=== PATIENT | female | born 1965 | race Caucasian/White ===

== ENCOUNTER 2016-12-03 10:59 | Emergency (ER) | payer MEDICARE, BC ==
[2016-12-03 11:14] VITALS: BP 148/84
--- NOTE | 2016-12-03 12:44 | EDM.PDOC ---
ED HPI GENERAL MEDICAL PROBLEM - General Chief Complaint: General Stated Complaint: RHEUMATOID ARTHRITIS Time Seen by Provider: 12/03/16 12:02 Source of Information: Reports: Patient History Limitations: Reports: No Limitations - History of Present Illness INITIAL COMMENTS - FREE TEXT/NARRATIVE: This patient has rheumatoid arthritis. She says she takes about 4 or 5 hydrocodone tablets, 5 mg, daily. Generally she takes 2 twice daily but has had to take an extra one lately. She is due to began infusions of a different medication soon. She's not able to have her hydrocodone prescription filled until Friday or 6 days from now. She is on a pain contract with Dr. Rodriguez. She' s been out of her medication for about a week and says that she is aching all over and various places. - Related Data Allergies Allergy/AdvReac Type Severity Reaction Status Date / Time azithromycin Allergy Stomach Verified 02/17/13 13:43 Upset Penicillins Allergy Rash Verified 02/17/13 13:43 Sulfa (Sulfonamide Allergy Rash Verified 02/17/13 13:43 Antibiotics) Home Meds: Home Meds ALPRAZolam [Xanax] 0.5 mg PO QID PRN 02/17/13 [History] Calcium Carbonate [Calcium] 600 mg PO BID 02/17/13 [History] Hydrocodone/Acetaminophen [[place] 10-325] 1 - 2 tab PO Q4H PRN 02/17/13 [History] Levothyroxine [Synthroid] 50 mcg PO DAILY 02/17/13 [History] Metoprolol Succinate [Toprol XL] 25 mg PO BID 02/17/13 [History] Multivitamin [Multi Vitamin Daily] 1 each PO DAILY 02/17/13 [History] Nystatin [Nystatin Crm] 30 gm TOP TID PRN 02/17/13 [History] SUMAtriptan [Imitrex] 50 mg PO DAILY PRN 02/17/13 [History] predniSONE 7 mg PO DAILY 02/17/13 [History] riTUXimab [Rituxan] 500 mg IV ASDIRECTED 10/26/14 [History] Escitalopram Oxalate [Lexapro] 1 tab PO DAILY 12/03/16 [History] buPROPion [Wellbutrin XL] 1 tab PO DAILY 12/03/16 [History] Past Medical History - Past Health History Medical/Surgical History: Denies Medical/Surgical History Cardiovascular History: Reports: Hypertension Genitourinary History: Reports: Renal Calculus Other Genitourinary History: recent uti, blood in urine Other OB/BYN History: fx pelvis, 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 Musculoskeletal History: Reports: Arthritis, RA Neurological History: Reports: Migraines Psychiatric History: Reports: Anxiety, Depression Other Psychiatric History: little down d/t loss of job Other Oncologic History: skin basal skin ca Dermatologic History: Reports: Other (See Below) Other Dermatologic History: 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 ED EXAM, GENERAL - Physical Exam Exam: See Below Exam Limited By: No Limitations General Appearance: Alert, WD/WN, Mild Distress Eye Exam: Bilateral Eye: Normal Inspection Respiratory/Chest: Lungs Clear Cardiovascular: Regular Rate, Rhythm Neurological: Alert, Oriented, Normal Cognition Skin Exam: Warm, Dry Course - Vital Signs Last Recorded V/S: Last Vital Signs Temp 36.0 C 12/03/16 12:07 Pulse 71 12/03/16 12:07 Resp 14 12/03/16 12:07 BP 148/84 H 12/03/16 12:07 Pulse Ox 96 12/03/16 12:07 Departure - Departure Time of Disposition: 12:42 Disposition: Home, Self-Care 01 Condition: Fair Clinical Impression: Rheumatoid arthritis flare, Rheumatoid arthritis - Discharge Information Forms: ED Department Discharge Additional Instructions: Prescription: Hydrocodone/apap 5/325 #20 tablets take one or 2 tablets twice daily. Try to make this medication last until you're able to get your regular prescription refilled on Friday. If you have any problems before then contact Dr. Rodriguez
== END 2016-12-03 12:48 | disposition home or self-care (01) ==
LOC: JP.ED 10:59
DX: M06.9 Rheumatoid arthritis, unspecified (principal); I10 Essential (primary) hypertension; G43.909 Migraine, unspecified, not intractable, without status migrainosus; F32.9 Major depressive disorder, single episode, unspecified; F41.9 Anxiety disorder, unspecified; Z96.659 Presence of unspecified artificial knee joint; Z96.649 Presence of unspecified artificial hip joint; Z98.890 Other specified postprocedural states; Z79.899 Other long term (current) drug therapy; Z88.2 Allergy status to sulfonamides; Z88.0 Allergy status to penicillin; Z88.1 Allergy status to other antibiotic agents
CPT/HCPCS: 99282; 99283

== ENCOUNTER 2019-02-21 15:47 | Emergency (ER) | payer MEDICARE, BC ==
[2019-02-21 16:16] VITALS: BP 185/106; PULSE 71
--- NOTE | 2019-02-21 16:35 | EDM.PDOC ---
ED HPI GENERAL MEDICAL PROBLEM - General Chief Complaint: ENT Problem Stated Complaint: SINUS PRESSURE/ACHY Time Seen by Provider: 02/21/19 16:34 Source of Information: Reports: Patient History Limitations: Reports: No Limitations - History of Present Illness INITIAL COMMENTS - FREE TEXT/NARRATIVE: pt arrived with sinus pressure. She does not have a fever. Onset: Other ( started suddenly today. ) Duration: Hour(s): Location: Reports: Face, Other (pt has alot of pressure over the sinues ) Associated Symptoms: Reports: Headaches, Other (nausea. ) Face/Facial Pain Score (Numeric/FACES): 8 - Related Data Allergies Allergy/AdvReac Type Severity Reaction Status Date / Time azithromycin Allergy Stomach Verified 02/21/19 16:25 Upset Penicillins Allergy Rash Verified 02/21/19 16:25 Sulfa (Sulfonamide Allergy Rash Verified 02/21/19 16:25 Antibiotics) Home Meds: Home Meds ALPRAZolam [Xanax] 0.5 mg PO QID PRN 02/17/13 [History] Calcium Carbonate [Calcium] 600 mg PO BID 02/17/13 [History] Hydrocodone/Acetaminophen [[place] 10-325] 1 - 2 tab PO Q4H PRN 02/17/13 [History] Levothyroxine [Synthroid] 50 mcg PO DAILY 02/17/13 [History] Metoprolol Succinate [Toprol XL] 25 mg PO BID 02/17/13 [History] Nystatin [Nystatin Crm] 30 gm TOP TID PRN 02/17/13 [History] SUMAtriptan [Imitrex] 50 mg PO DAILY PRN 02/17/13 [History] predniSONE 6 mg PO DAILY 02/17/13 [History] Past Medical History - Past Health History Medical/Surgical History: Denies Medical/Surgical History Cardiovascular History: Reports: Hypertension Genitourinary History: Reports: Renal Calculus Other Genitourinary History: recent uti, blood in urine 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, 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 Musculoskeletal History: Reports: Arthritis, RA Neurological History: Reports: Migraines Psychiatric History: Reports: Anxiety, Depression Other Psychiatric History: little down d/t loss of job Other Oncologic History: skin basal skin ca Dermatologic History: Reports: Other (See Below) Other Dermatologic History: thin skin from [facility] predisone use - Past Surgical History Musculoskeletal Surgical History: Reports: Hip Replacement, Knee Replacement Social & Family History - Caffeine Use Caffeine Use: Reports: Soda ED ROS ENT - Review of Systems Review Of Systems: See Below Constitutional: Reports: Other (pressure over the sinus. ) HEENT: Reports: Sinus Problem Respiratory: Reports: No Symptoms Cardiovascular: Reports: No Symptoms Endocrine: Reports: No Symptoms GI/Abdominal: Reports: No Symptoms : Reports: No Symptoms Musculoskeletal: Reports: No Symptoms Skin: Reports: No Symptoms ED EXAM, ENT - Physical Exam Exam: See Below Text/Narrative:: pt arrived with a history of pressure over her sinuses. She feels congested. She is achy all over. She has a sore on her rt llower leg that she wants us to look at. Exam Limited By: No Limitations General Appearance: Alert, Anxious, Moderate Distress Ears: Normal TMs Nose: Normal Inspection, Other (pt has tenderness over her maxillary sinus area. ) Mouth/Throat: Normal Inspection Head: Atraumatic Neck: Normal Inspection Respiratory/Chest: No Respiratory Distress Extremities: Other (pt has a scap on the rt lower leg. There is slight redness on the leg. ) Neurological: Alert, Oriented, Normal Cognition Course - Vital Signs Last Recorded V/S: Last Vital Signs Temp 36.0 C 02/21/19 16:24 Pulse 71 02/21/19 16:24 Resp 14 02/21/19 16:24 BP 185/106 H 02/21/19 16:24 Pulse Ox 97 02/21/19 16:24 - Orders/Labs/Meds Labs: Laboratory Tests 02/21/19 Range/Units 17:05 WBC 8.0 (4.5-11.0) K/uL RBC 4.05 (3.30-5.50) M/uL Hgb 12.7 (12.0-15.0) g/dL Hct 40.0 (36.0-48.0) % MCV 99 H (80-98) fL MCH 31 (27-31) pg MCHC 32 (32-36) % Plt Count 371 (150-400) K/uL Neut % (Auto) 73 H (36-66) % Lymph % (Auto) 19 L (24-44) % [place] % (Auto) 7 H (2-6) % Eos % (Auto) 1 L (2-4) % Baso % (Auto) 1 (0-1) % Meds: Medications Discontinued Medications Generic Name Dose Route Start Last Admin Trade Name Freq PRN Reason Stop Dose Admin Bacitracin 1 dose 02/21/19 16:49 02/21/19 17:25 Bacitracin Oint 1 Gm TOP 02/21/19 16:50 1 dose ONETIME ONE Administration Ondansetron HCl 4 mg 02/21/19 16:52 02/21/19 17:23 Zofran Odt PO 02/21/19 16:53 4 mg ONETIME ONE Administration - Re-Assessments/Exams Free Text/Narrative Re-Assessment/Exam: 02/21/19 17:28 cleaning view does not show definite sinusitis, her wbc is not elevated but she does have mainly segs. 02/23/19 09:19 The area on the rt leg was cleaned and the scap was removed. There was a small amount of pus under the scap. Departure - Departure Time of Disposition: 17:28 Disposition: Home, Self-Care 01 Condition: Fair Clinical Impression: Sinusitis, Leg ulcer - Discharge Information Instructions: Sinusitis, Adult, [id number] Referrals: Alvarez Rodriguez MD [Primary Care Provider] - Forms: ED Department Discharge Care Plan Goals: cool mist humidifer,push fluids, rtc if not improving, zoforan 4 mg q6h prn for nause, clean leg lesion and apply bacatracin, keflex 500mg tid for 10 days,
[2019-02-21] MEDS ORDERED: Bacitracin Oint 1 GM U/D Packet TOP ONE (16:49)
[2019-02-21] MEDS ORDERED: Ondansetron 4 MG Tab.DIS PO ONE (16:52)
--- NOTE | 2019-02-21 17:31 | CRLCR ---
INDICATION: sinus pressure Indication: Sinus pressure. Technique: Paranasal sinuses, two views. Comparison: None. Findings: No plain film evidence for acute sinusitis. The maxillary antra, frontal sinuses, and mastoid air cells of both temporal bones are clear. Orbital low are symmetric. Impression: No plain film evidence for acute sinusitis. Dictated by Jose Maria Spicer MD @ 02/21/2019 5:30:39 PM Dictated by: Jose Maria Spicer MD @ 02/21/2019 17:30:47 (Electronically Signed)
== END 2019-02-21 17:39 | disposition home or self-care (01) ==
LOC: JP.ED 15:47
DX: J32.9 Chronic sinusitis, unspecified (principal); L97.919 Non-pressure chronic ulcer of unspecified part of right lower leg with unspecified severity; I10 Essential (primary) hypertension; M06.9 Rheumatoid arthritis, unspecified; F41.9 Anxiety disorder, unspecified; F32.9 Major depressive disorder, single episode, unspecified; Z88.0 Allergy status to penicillin; Z88.1 Allergy status to other antibiotic agents; Z88.2 Allergy status to sulfonamides; Z79.899 Other long term (current) drug therapy
CPT/HCPCS: 36415; 70210; 85025; 99284; A9270; 99283

== ENCOUNTER 2020-12-03 10:59 | Emergency (ER) | payer MEDICARE, BC ==
[2020-12-03 11:23] VITALS: BP 179/113; PULSE 81
[2020-12-03] MEDS ORDERED: Ketorolac 30 MG/ML SDV IVPUSH ONE (11:39)
[2020-12-03] MEDS ORDERED: Ondansetron 4 MG/2 ML SDV IVPUSH ONE (11:39)
[2020-12-03] MEDS ORDERED: Lactated Ringers 1,000 ML IV ONE (11:39)
[2020-12-03] MEDS ORDERED: HYDROmorphone 0.5 MG/0.5 ML Syringe IVPUSH ONE (11:40)
--- NOTE | 2020-12-03 11:46 | EDM.PDOC ---
ED HPI GENERAL MEDICAL PROBLEM - General Chief Complaint: Abdominal Pain Stated Complaint: POSSIBLE KINDEY STONE Time Seen by Provider: 12/03/20 11:30 Source of Information: Reports: Patient, Family, Old Records, RN History Limitations: Reports: No Limitations - History of Present Illness INITIAL COMMENTS - FREE TEXT/NARRATIVE: 55 yo female present with R low back pain. Sx's have been waxing and waning for a couple weeks. Has used a heating pad to the area. Saw her doctor who noted on CT scan that she has a kidney stone. She has had these in the past. Has nausea with this. Has pHx of shingles and thinks they were high abd area. No fever. No gross hematuria. Onset: Unknown/Unsure Duration: Week(s): (~2) Location: Reports: Other (R low back) Quality: Reports: Ache Severity: Moderate (severe at times) Improves with: Reports: None Worsens with: Reports: None Context: Reports: Other (See HPI) Associated Symptoms: Reports: Nausea/Vomiting (no vomiting). 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 below) (none) Right Flank Pain Score (Numeric/FACES): 10 - Related Data Allergies Allergy/AdvReac Type Severity Reaction Status Date / Time azithromycin Allergy Stomach Verified 02/21/19 16:25 Upset Penicillins Allergy Rash Verified 02/21/19 16:25 Sulfa (Sulfonamide Allergy Rash Verified 02/21/19 16:25 Antibiotics) Home Meds: Home Meds ALPRAZolam [Xanax] 0.5 mg PO QID PRN 02/17/13 [History] Calcium Carbonate [Calcium] 600 mg PO BID 02/17/13 [History] Hydrocodone/Acetaminophen [[place] 10-325] 1 - 2 tab PO Q4H PRN 02/17/13 [History] Levothyroxine [Synthroid] 50 mcg PO DAILY 02/17/13 [History] Metoprolol Succinate [Toprol XL] 25 mg PO BID 02/17/13 [History] Nystatin [Nystatin Crm] 30 gm TOP TID PRN 02/17/13 [History] SUMAtriptan [Imitrex] 50 mg PO DAILY PRN 02/17/13 [History] predniSONE 5.5 mg PO DAILY 02/17/13 [History] valACYclovir HCl [Valacyclovir] 1,000 mg PO TID #20 tablet 12/03/20 [Rx] Past Medical History - Past Health History Medical/Surgical History: Denies Medical/Surgical History Cardiovascular History: Reports: Hypertension Genitourinary History: Reports: Renal Calculus Other Genitourinary History: recent uti, blood in urine 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, 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 Musculoskeletal History: Reports: Arthritis, RA Neurological History: Reports: Migraines Psychiatric History: Reports: Anxiety, Depression Other Psychiatric History: little down d/t loss of job Other Oncologic History: skin basal skin ca Dermatologic History: Reports: Other (See Below) Other Dermatologic History: 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 - Infectious Disease History Infectious Disease History: Reports: Chicken Pox - Past Surgical History Head Surgeries/Procedures: Reports: None Cardiovascular Surgical History: Reports: None Female Surgical History: Reports: None Neurological Surgical History: Reports: None Musculoskeletal Surgical History: Reports: Hip Replacement, Knee Replacement Other Musculoskeletal Surgeries/Procedures:: steel aditya right side, foot surgeries aditya in left foot, wrist surgery Oncologic Surgical History: Reports: None Dermatological Surgical History: Reports: None Social & Family History - Tobacco Use Tobacco Use Status *Q: Never Tobacco User - Caffeine Use Caffeine Use: Reports: Soda - Recreational Drug Use Recreational Drug Use: No ED ROS GENERAL - Review of Systems Review Of Systems: See Below Constitutional: Reports: No Symptoms HEENT: Reports: No Symptoms Respiratory: Reports: No Symptoms Cardiovascular: Reports: No Symptoms GI/Abdominal: Reports: Nausea. Denies: Abdominal Pain, Diarrhea, Vomiting : Reports: Flank Pain (right side). Denies: Dysuria, Hematuria Musculoskeletal: Reports: Other (R low back pain) Skin: Reports: Rash (there is a rash that is red and looks somewhat like shingles, it does not continue around to the abdomen. The rash is in the R low back and is in the same area as her heating pad. This area is not tender with touching. ) Neurological: Reports: No Symptoms ED EXAM, RENAL/ - Physical Exam Exam: See Below Exam Limited By: No Limitations General Appearance: Alert, WD/WN, Mild Distress Eye Exam: Bilateral Eye: Normal Inspection Ears: Normal External Exam, Normal Canal, Hearing Grossly Normal Nose: Normal Inspection, No Blood Throat/Mouth: Normal Lips, Normal Voice, No Airway Compromise Head: Atraumatic, Normocephalic Neck: Normal Inspection Respiratory/Chest: No Respiratory Distress, Lungs Clear, Normal Breath Sounds, No Accessory Muscle Use Cardiovascular: Regular Rate, Rhythm GI/Abdominal: Normal Bowel Sounds, Soft, Non-Tender, No Distention. No: Distended Back Exam: Normal Inspection. No: CVA Tenderness (R), CVA Tenderness (L), Muscle Spasm, Paraspinal Tenderness, Vertebral Tenderness Extremities: Normal Inspection, Normal Range of Motion, Non-Tender, No Pedal Edema Neurological: Alert, Oriented, CN II-XII Intact, Normal Cognition, No Motor/Sensory Deficits Psychiatric: Normal Affect, Normal Mood Skin Exam: Warm, Dry, Intact, Normal Color, Rash (shingles like rash in the R low back area only, not on the abdomen. Not tender. Some tiny vesicles present. ). No: No Rash Course - Vital Signs Last Recorded V/S: Last Vital Signs Temp 36.0 C L 12/03/20 11:22 Pulse 81 12/03/20 11:22 Resp 16 12/03/20 11:22 BP 179/113 H 12/03/20 11:22 Pulse Ox 98 12/03/20 11:22 - Orders/Labs/Meds Orders: Active Orders 24 hr Category Date Time Status valACYclovir [Valtrex] Med 12/03/20 14:15 Ordered 1,000 mg PO BID Medication Orders Valacyclovir HCl (Valacyclovir 1,000 Mg Tab) 1,000 mg PO BID NATASHA Labs: Laboratory Tests 12/03/20 Range/Units 13:37 Urine Color Yellow (YELLOW) Urine Appearance Clear (CLEAR) Urine pH 7.0 (5.0-8.0) Ur Specific [place] 1.025 (1.008-1.030) Urine Protein Negative (NEGATIVE) mg/dL Urine Glucose (UA) Negative (NEGATIVE) mg/dL Urine Ketones Negative (NEGATIVE) mg/dL Urine Occult Blood Negative (NEGATIVE) Urine Nitrite Negative (NEGATIVE) Urine Bilirubin Negative (NEGATIVE) Urine Urobilinogen 0.2 (0.2-1.0) EU/dL Ur Leukocyte Esterase Negative (NEGATIVE) Urine RBC Not seen (0-5) Urine WBC Not seen (0-5) Ur Epithelial Cells Not seen Amorphous Sediment Rare Urine Bacteria Not seen Urine Mucus Not seen Meds: Medications Generic Name Dose Route Start Last Admin Trade Name Freq PRN Reason Stop Dose Admin Valacyclovir HCl 1,000 mg 12/03/20 14:15 Valacyclovir 1,000 Mg Tab PO BID NATASHA Discontinued Medications Generic Name Dose Route Start Last Admin Trade Name Aniket PRN Reason Stop Dose Admin Hydrocodone Bitart/Acetaminophen 1 tab 12/03/20 13:37 12/03/20 13:43 Acetaminophen/Hydrocodone 325-5 Mg Tab PO 12/03/20 13:38 1 tab ONETIME ONE Administration Hydromorphone HCl 0.5 mg 12/03/20 11:40 12/03/20 12:10 Hydromorphone 0.5 Mg/0.5 Ml Syringe IVPUSH 12/03/20 11:41 0.5 mg ONETIME ONE Administration Lactated Ringer's 1,000 mls @ 1,000 mls/hr 12/03/20 11:39 12/03/20 12:11 Ringers, Lactated IV 12/03/20 12:38 1,000 mls/hr BOLUS ONE Administration Ketorolac Tromethamine 30 mg 12/03/20 11:39 12/03/20 12:06 Ketorolac 30 Mg/Ml Sdv IVPUSH 12/03/20 11:40 30 mg ONETIME ONE Administration Ondansetron HCl 4 mg 12/03/20 11:39 12/03/20 12:06 Ondansetron 4 Mg/2 Ml Sdv IVPUSH 12/03/20 11:40 4 mg ONETIME ONE Administration Departure - Departure Time of Disposition: 14:22 Disposition: Home, Self-Care 01 Condition: Fair Clinical Impression: Shingles Qualifiers: Herpes zoster complications: without complications Qualified Code(s): B02.9 - Zoster without complications - Discharge Information *PRESCRIPTION DRUG MONITORING PROGRAM REVIEWED*: Not Applicable *COPY OF PRESCRIPTION DRUG MONITORING REPORT IN PATIENT AMBIKA: Not Applicable Prescriptions: valACYclovir HCl [Valacyclovir] 1,000 mg PO TID #20 tablet Referrals: Alvarez Rodriguez MD [Primary Care Provider] - Forms: ED Department Discharge Additional Instructions: Valacyclovir every 8 hrs. for shingles. [place] for pain relief. Stay hydrated. See your doctor later this week. Sepsis Event Note (ED) - Evaluation Sepsis Screening Result: No Definite Risk - Focused Exam Vital Signs: Vital Signs Temp Pulse Resp BP Pulse Ox 12/03/20 11:22 36.0 C L 81 16 179/113 H 98 - My Orders Last 24 Hours: My Active Orders 12/03/20 14:15 valACYclovir [Valtrex] 1,000 mg PO BID - Assessment/Plan Last 24 Hours: My Active Orders 12/03/20 14:15 valACYclovir [Valtrex] 1,000 mg PO BID
[2020-12-03] MEDS ORDERED: Acetaminophen/HYDROcodone 325-5 MG Tab PO ONE (13:37)
[2020-12-03] MEDS ORDERED: valACYclovir 1,000 MG Tab PO SCH (14:15)
== END 2020-12-03 14:38 | disposition home or self-care (01) ==
LOC: JP.ED 10:59
DX: B02.9 Zoster without complications (principal); I10 Essential (primary) hypertension; Z88.0 Allergy status to penicillin; Z88.2 Allergy status to sulfonamides; Z88.8 Allergy status to other drugs, medicaments and biological substances; Z79.899 Other long term (current) drug therapy
CPT/HCPCS: 81001; 96374; 96375; 99283; A9270; J1170; J1885; J2405; J7120

== ENCOUNTER 2020-12-04 09:28 | Emergency (ER) | payer MEDICARE, BC ==
[2020-12-04] MEDS ORDERED: Sodium Chloride 0.9% 10 ML Syringe FLUSH PRN (10:12)
[2020-12-04] MEDS ORDERED: Ondansetron 4 MG/2 ML SDV IVPUSH ONE (10:12)
[2020-12-04] MEDS ORDERED: HYDROmorphone 0.5 MG/0.5 ML Syringe IVPUSH ONE (10:13)
[2020-12-04] MEDS ORDERED: Ketorolac 30 MG/ML SDV IVPUSH ONE (10:15)
[2020-12-04] MEDS ORDERED: valACYclovir 1,000 MG Tab PO SCH (10:15)
--- NOTE | 2020-12-04 10:19 | EDM.PDOC ---
ED HPI GENERAL MEDICAL PROBLEM - General Chief Complaint: Back Pain or Injury Stated Complaint: FEELING VERY WEAK Time Seen by Provider: 12/04/20 10:00 Source of Information: Reports: Patient, Old Records, RN History Limitations: Reports: No Limitations - History of Present Illness INITIAL COMMENTS - FREE TEXT/NARRATIVE: 55 yo female with RA presents with continued pain and nausea from a recent outbreak of shingles. No vomiting or fever. Was started on Valtrex last night. Not getting adequate relief from her Jetmore that she had at home. Onset: Gradual Duration: Day(s):, Getting Worse Location: Reports: Back (R low back) Quality: Reports: Burning Severity: Severe Improves with: Reports: Medication Worsens with: Reports: None Context: Reports: Other (See HPI) Associated Symptoms: Reports: Malaise, Nausea/Vomiting (no vomiting), Weakness (generalized). 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 AEROBICS INSTRUCTOR: Reports: Other (see below) (See HPI) - Related Data Allergies Allergy/AdvReac Type Severity Reaction Status Date / Time azithromycin Allergy Stomach Verified 12/04/20 09:53 Upset Penicillins Allergy Rash Verified 12/04/20 09:53 Sulfa (Sulfonamide Allergy Rash Verified 12/04/20 09:53 Antibiotics) Home Meds: Home Meds ALPRAZolam [Xanax] 0.5 mg PO QID PRN 02/17/13 [History] Calcium Carbonate [Calcium] 600 mg PO BID 02/17/13 [History] Levothyroxine [Synthroid] 50 mcg PO DAILY 02/17/13 [History] Metoprolol Succinate [Toprol XL] 25 mg PO BID 02/17/13 [History] Nystatin [Nystatin Crm] 30 gm TOP TID PRN 02/17/13 [History] SUMAtriptan [Imitrex] 50 mg PO DAILY PRN 02/17/13 [History] predniSONE 5.5 mg PO DAILY 02/17/13 [History] valACYclovir HCl [Valacyclovir] 1,000 mg PO Q8H #20 tablet 12/03/20 [Rx] valACYclovir HCl [Valacyclovir] 1,000 mg PO TID #20 tablet 12/03/20 [Rx] Ondansetron [Zofran ODT] 4 mg PO Q6H PRN #8 tab.dis 12/04/20 [Rx] Past Medical History - Past Health History Medical/Surgical History: Denies Medical/Surgical History HEENT History: Reports: None Cardiovascular History: Reports: Hypertension Genitourinary History: Reports: Renal Calculus Other Genitourinary History: recent uti, blood in urine 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, 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 Musculoskeletal History: Reports: Arthritis, RA Neurological History: Reports: Migraines Psychiatric History: Reports: Anxiety, Depression Other Psychiatric History: little down d/t loss of job Endocrine/Metabolic History: Reports: Hypothyroidism Other Oncologic History: skin basal skin ca Dermatologic History: Reports: Other (See Below) Other Dermatologic History: 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 - Infectious Disease History Infectious Disease History: Reports: Chicken Pox - Past Surgical History Head Surgeries/Procedures: Reports: None HEENT Surgical History: Reports: None Cardiovascular Surgical History: Reports: None Female Surgical History: Reports: None Endocrine Surgical History: Reports: None Neurological Surgical History: Reports: None Musculoskeletal Surgical History: Reports: Hip Replacement, Knee Replacement Other Musculoskeletal Surgeries/Procedures:: steel aditya right side, foot surgeries aditya in left foot, wrist surgery Oncologic Surgical History: Reports: None Dermatological Surgical History: Reports: None Social & Family History - Caffeine Use Caffeine Use: Reports: Soda ED ROS GENERAL - Review of Systems Review Of Systems: See Below Constitutional: Reports: No Symptoms HEENT: Reports: No Symptoms Respiratory: Reports: No Symptoms Cardiovascular: Reports: No Symptoms GI/Abdominal: Reports: Nausea. Denies: Diarrhea, Vomiting : Reports: No Symptoms Musculoskeletal: Reports: Back Pain (R low back and hip area) Skin: Reports: Rash (shingles R low back and hip) Neurological: Reports: No Symptoms ED EXAM, GENERAL - Physical Exam Exam: See Below General Appearance: Alert, WD/WN, No Apparent Distress Eye Exam: Bilateral Eye: Normal Inspection Ears: Normal External Exam, Normal Canal, Hearing Grossly Normal Ear Exam: Bilateral Ear: Auricle Normal, Canal Normal Nose: Normal Inspection, No Blood Throat/Mouth: Normal Inspection, Normal Lips, Normal Oropharynx, Normal Voice, No Airway Compromise Head: Atraumatic, Normocephalic Neck: Normal Inspection Respiratory/Chest: No Respiratory Distress, Lungs Clear, Normal Breath Sounds, No Accessory Muscle Use Cardiovascular: Regular Rate, Rhythm, No Edema GI/Abdominal: Soft, Non-Tender Back Exam: Normal Inspection. No: CVA Tenderness (R), CVA Tenderness (L) Extremities: Normal Inspection, Normal Range of Motion, Non-Tender, No Pedal Edema Neurological: Alert, Oriented, CN II-XII Intact, Normal Cognition, No Motor/Sensory Deficits Psychiatric: Normal Affect, Normal Mood Skin Exam: Zoster-Like Rash (R low back and hip areas) Course - Vital Signs Last Recorded V/S: Last Vital Signs Temp 35.4 C L 12/04/20 09:57 Pulse 76 12/04/20 10:51 Resp 16 12/04/20 09:57 BP 167/100 H 12/04/20 10:51 Pulse Ox 98 12/04/20 10:51 - Orders/Labs/Meds Orders: Active Orders 24 hr Category Date Time Status UA W/MICROSCOPIC [URIN] Stat Lab 12/04/20 11:15 Received Sodium Chloride 0.9% [Saline Flush] Med 12/04/20 10:12 Active 10 ml FLUSH ASDIRECTED PRN fentaNYL [Duragesic] Med 12/04/20 11:30 Ordered 12 mcg TRDERM Q72H valACYclovir [Valtrex] Med 12/04/20 10:15 Active 1,000 mg PO DAILY Saline Lock Insert [OM.PC] Routine Oth 12/04/20 10:12 Ordered Medication Orders Fentanyl (Fentanyl 12 Mcg/Hr Transdermal Patch) 12 mcg TRDERM Q72H NATASHA Sodium Chloride (Sodium Chloride 0.9% 10 Ml Syringe) 10 ml FLUSH ASDIRECTED PRN PRN Reason: Keep Vein Open Last Admin: 12/04/20 10:31 Dose: 10 ml Documented by: ROXANN Valacyclovir HCl (Valacyclovir 1,000 Mg Tab) 1,000 mg PO DAILY NATASHA Last Admin: 12/04/20 10:30 Dose: 1,000 mg Documented by: ROXANN Labs: Laboratory Tests 12/04/20 12/04/20 Range/Units 10:29 10:29 WBC 8.8 (4.5-11.0) K/uL RBC 4.09 (3.30-5.50) M/uL Hgb 13.2 (12.0-15.0) g/dL Hct 41.1 (36.0-48.0) % MCV 101 H (80-98) fL MCH 32 H (27-31) pg MCHC 32 (32-36) % Plt Count 319 (150-400) K/uL Sodium 144 (140-148) mmol/L Potassium 3.7 (3.6-5.2) mmol/L Chloride 103 (100-108) mmol/L Carbon Dioxide 30 (21-32) mmol/L Anion Gap 11.2 (5.0-14.0) mmol/L BUN 10 (7-18) mg/dL Creatinine 1.1 H (0.6-1.0) mg/dL Est Cr Clr Drug Dosing 50.77 mL/min Estimated GFR (MDRD) 51 L (>60) Glucose 106 (74-106) mg/dL Calcium 9.1 (8.5-10.1) mg/dL Meds: Medications Generic Name Dose Route Start Last Admin Trade Name Freq PRN Reason Stop Dose Admin Fentanyl 12 mcg 12/04/20 11:30 Fentanyl 12 Mcg/Hr Transdermal Patch TRDERM Q72H NATASHA Sodium Chloride 10 ml 12/04/20 10:12 12/04/20 10:31 Sodium Chloride 0.9% 10 Ml Syringe FLUSH 10 ml ASDIRECTED PRN Administration Keep Vein Open Valacyclovir HCl 1,000 mg 12/04/20 10:15 12/04/20 10:30 Valacyclovir 1,000 Mg Tab PO 1,000 mg DAILY NATASHA Administration Discontinued Medications Generic Name Dose Route Start Last Admin Trade Name Freq PRN Reason Stop Dose Admin Hydromorphone HCl 0.5 mg 12/04/20 10:13 12/04/20 10:30 Hydromorphone 0.5 Mg/0.5 Ml Syringe IVPUSH 12/04/20 10:14 0.5 mg ONETIME ONE Administration Ketorolac Tromethamine 30 mg 12/04/20 10:15 12/04/20 10:30 Ketorolac 30 Mg/Ml Sdv IVPUSH 12/04/20 10:16 30 mg ONETIME ONE Administration Ondansetron HCl 4 mg 12/04/20 10:12 12/04/20 10:29 Ondansetron 4 Mg/2 Ml Sdv IVPUSH 12/04/20 10:13 4 mg ONETIME ONE Administration Departure - Departure Time of Disposition: 11:30 Disposition: Home, Self-Care 01 Condition: Fair Clinical Impression: Shingles Qualifiers: Herpes zoster complications: without complications Qualified Code(s): B02.9 - Zoster without complications - Discharge Information *PRESCRIPTION DRUG MONITORING PROGRAM REVIEWED*: Not Applicable *COPY OF PRESCRIPTION DRUG MONITORING REPORT IN PATIENT AMBIKA: Not Applicable Prescriptions: Ondansetron [Zofran ODT] 4 mg PO Q6H PRN #8 tab.dis PRN Reason: Nausea Referrals: Alvarez Rodriguez MD [Primary Care Provider] - Forms: ED Department Discharge Additional Instructions: Use Zofran as needed for nausea control. Reduce your valacyclovir to one dose every 12 hrs. Recheck with your doctor in the next couple of days, call for an appt. Use your Jetmore and ibuprofen for break through pain. Sepsis Event Note (ED) - Evaluation Sepsis Screening Result: No Definite Risk - Focused Exam Vital Signs: Vital Signs Temp Pulse Resp BP Pulse Ox 12/04/20 10:51 76 167/100 H 98 12/04/20 09:57 35.4 C L 86 16 184/98 H 94 L 12/04/20 09:48 35.4 C L 86 16 184/98 H 94 L - My Orders Last 24 Hours: My Active Orders 12/04/20 10:12 Sodium Chloride 0.9% [Saline Flush] 10 ml FLUSH ASDIRECTED PRN Saline Lock Insert [OM.PC] Routine 12/04/20 10:15 valACYclovir [Valtrex] 1,000 mg PO DAILY 12/04/20 11:15 UA W/MICROSCOPIC [URIN] Stat 12/04/20 11:30 fentaNYL [Duragesic] 12 mcg TRDERM Q72H - Assessment/Plan Last 24 Hours: My Active Orders 12/04/20 10:12 Sodium Chloride 0.9% [Saline Flush] 10 ml FLUSH ASDIRECTED PRN Saline Lock Insert [OM.PC] Routine 12/04/20 10:15 valACYclovir [Valtrex] 1,000 mg PO DAILY 12/04/20 11:15 UA W/MICROSCOPIC [URIN] Stat 12/04/20 11:30 fentaNYL [Duragesic] 12 mcg TRDERM Q72H
[2020-12-04 10:51] VITALS: BP 167/100; PULSE 76
[2020-12-04] MEDS ORDERED: fentaNYL 12 MCG/HR Transdermal Patch TRDERM SCH (11:30)
== END 2020-12-04 11:46 | disposition home or self-care (01) ==
LOC: JP.ED 09:28
DX: B02.9 Zoster without complications (principal); I10 Essential (primary) hypertension; E03.9 Hypothyroidism, unspecified; Z88.0 Allergy status to penicillin; Z88.2 Allergy status to sulfonamides; Z88.1 Allergy status to other antibiotic agents; Z79.899 Other long term (current) drug therapy
CPT/HCPCS: 36415; 80048; 81001; 85027; 96374; 96375; 99283; A9270; J1170; J1885; J2405

== ENCOUNTER 2021-05-26 10:21 | Emergency (ER) | payer MEDICARE, BC ==
--- NOTE | 2021-05-26 10:39 | EDM.PDOC ---
ED HPI GENERAL MEDICAL PROBLEM - General Chief Complaint: General Stated Complaint: CHILLS, BODY ACHES Time Seen by Provider: 05/26/21 10:39 Source of Information: Reports: Patient History Limitations: Reports: No Limitations - History of Present Illness INITIAL COMMENTS - FREE TEXT/NARRATIVE: pt has RA but today she is very achy and has a low grade temp. She has mild nausea. She was concerned that she might have covid. She is completly immunized. Onset: Other ( started last nite. ) Duration: Hour(s): Location: Reports: Generalized Associated Symptoms: Reports: Cough, Other ( body aches) Generalized Pain Score (Numeric/FACES): 8 - Related Data Allergies Allergy/AdvReac Type Severity Reaction Status Date / Time azithromycin Allergy Stomach Verified 05/26/21 10:56 Upset Penicillins Allergy Rash Verified 05/26/21 10:56 Sulfa (Sulfonamide Allergy Rash Verified 05/26/21 10:56 Antibiotics) Home Meds: Home Meds ALPRAZolam [Xanax] 0.5 mg PO QID PRN 02/17/13 [History] Calcium Carbonate [Calcium] 600 mg PO BID 02/17/13 [History] Levothyroxine [Synthroid] 50 mcg PO DAILY 02/17/13 [History] Metoprolol Succinate [Toprol XL] 25 mg PO BID 02/17/13 [History] Nystatin [Nystatin Crm] 30 gm TOP TID PRN 02/17/13 [History] SUMAtriptan [Imitrex] 50 mg PO DAILY PRN 02/17/13 [History] predniSONE 5 mg PO DAILY 02/17/13 [History] Ondansetron [Zofran ODT] 4 mg PO Q6H PRN #8 tab.dis 12/04/20 [Rx] Cholecalciferol (Vitamin D3) [Vitamin D3] 1 tab PO BID 05/26/21 [History] Hydrocodone/Acetaminophen [Hydrocodon-Acetaminophn 10-325] 1 tab PO ASDIRECTED 05/26/21 [History] Nystatin 1 dose PO ASDIRECTED 05/26/21 [History] Past Medical History - Past Health History Medical/Surgical History: Denies Medical/Surgical History HEENT History: Reports: None Cardiovascular History: Reports: Hypertension Genitourinary History: Reports: Renal Calculus Other Genitourinary History: recent uti, blood in urine 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, 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 Musculoskeletal History: Reports: Arthritis, RA Neurological History: Reports: Migraines Psychiatric History: Reports: Anxiety, Depression Other Psychiatric History: little down d/t loss of job Endocrine/Metabolic History: Reports: Hypothyroidism Other Oncologic History: skin basal skin ca Dermatologic History: Reports: Other (See Below) Other Dermatologic History: 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 - Infectious Disease History Infectious Disease History: Reports: Chicken Pox - Past Surgical History Head Surgeries/Procedures: Reports: None HEENT Surgical History: Reports: None Cardiovascular Surgical History: Reports: None Female Surgical History: Reports: None Endocrine Surgical History: Reports: None Neurological Surgical History: Reports: None Musculoskeletal Surgical History: Reports: Hip Replacement, Knee Replacement Other Musculoskeletal Surgeries/Procedures:: steel aditya right side, foot surgeries adiyta in left foot, wrist surgery Oncologic Surgical History: Reports: None Dermatological Surgical History: Reports: None Social & Family History - Caffeine Use Caffeine Use: Reports: Soda ED ROS GENERAL - Review of Systems Review Of Systems: See Below Constitutional: Reports: Chills, Decreased Appetite HEENT: Reports: Other (nasal congestion) Respiratory: Reports: Other (nasal congestion) Cardiovascular: Reports: No Symptoms Endocrine: Reports: No Symptoms GI/Abdominal: Reports: No Symptoms : Reports: No Symptoms Musculoskeletal: Reports: Muscle Pain (0) ED EXAM, GENERAL - Physical Exam Exam: See Below Free Text/Narrative:: pt arrived concerned about covid, feeling achy and chilling. Exam Limited By: No Limitations General Appearance: Alert, Anxious, Mild Distress Ears: Normal TMs Nose: Normal Inspection Throat/Mouth: Normal Inspection Head: Atraumatic Neck: Normal Inspection Respiratory/Chest: No Respiratory Distress Cardiovascular: Regular Rate, Rhythm GI/Abdominal: Soft, Non-Tender (Female) Exam: Deferred Rectal (Female) Exam: Deferred Back Exam: Normal Inspection Extremities: Normal Inspection Neurological: Alert, Oriented, Normal Cognition Psychiatric: Anxious Course - Vital Signs Last Recorded V/S: Last Vital Signs Temp 36.4 C 05/26/21 10:55 Pulse 79 05/26/21 10:55 Resp 16 05/26/21 10:55 BP 181/101 H 05/26/21 10:55 Pulse Ox 97 12/25/21 10:55 - Orders/Labs/Meds Orders: Active Orders 24 hr Category Date Time Status Isolation [COMM] Stat Oth 05/26/21 11:02 Ordered Labs: Laboratory Tests 05/26/21 05/26/21 05/26/21 Range/Units 11:02 11:50 12:01 WBC 8.3 (4.5-11.0) K/uL RBC 3.77 (3.30-5.50) M/uL Hgb 11.9 L (12.0-15.0) g/dL Hct 37.1 (36.0-48.0) % MCV 98 (80-98) fL MCH 32 H (27-31) pg MCHC 32 (32-36) % Plt Count 313 (150-400) K/uL Neut % (Auto) 52.8 (36-66) % Lymph % (Auto) 29.6 (24-44) % Mccracken % (Auto) 11.8 H (2-6) % Eos % (Auto) 5.4 H (2-4) % Baso % (Auto) 0.4 (0-1) % Urine Color Yellow (YELLOW) Urine Appearance Clear (CLEAR) Urine pH 6.0 (5.0-8.0) Ur Specific Clark >= 1.030 (1.008-1.030) Urine Protein Negative (NEGATIVE) mg/dL Urine Glucose (UA) Negative (NEGATIVE) mg/dL Urine Ketones Negative (NEGATIVE) mg/dL Urine Occult Blood Negative (NEGATIVE) Urine Nitrite Negative (NEGATIVE) Urine Bilirubin Negative (NEGATIVE) Urine Urobilinogen 0.2 (0.2-1.0) EU/dL Ur Leukocyte Esterase Negative (NEGATIVE) Urine RBC Not seen (0-5) Urine WBC Not seen (0-5) Ur Epithelial Cells Few Amorphous Sediment Not seen Urine Bacteria Not seen Urine Mucus Few Influenza Type A RNA Negative (NEGATIVE) RSV RNA (INAAT) Negative (NEGATIVE) Influenza Type B RNA Negative (NEGATIVE) SARS-CoV-2 RNA (KENDALL) Negative (NEGATIVE) - Re-Assessments/Exams Free Text/Narrative Re-Assessment/Exam: 05/27/21 08:16 pt did not have a elevated wbc. Her covid and influ was neg. She feels like she has the flu. Departure - Departure Time of Disposition: 12:50 Disposition: Home, Self-Care 01 Condition: Fair Clinical Impression: Viral illness, Rheumatoid arthritis - Discharge Information Instructions: Viral Illness, Adult Referrals: Alvarez Rodriguez MD [Primary Care Provider] - Forms: ED Department Discharge Care Plan Goals: tylenol for discomfort, push fluids, rtc if symptoms get worse. - My Orders Last 24 Hours: My Active Orders 05/26/21 11:02 Isolation [COMM] Stat - Assessment/Plan Last 24 Hours: My Active Orders 05/26/21 11:02 Isolation [COMM] Stat
[2021-05-26 10:56] VITALS: BP 181/101; PULSE 79
[2021-05-26 11:33] LABS: CORONAVIRUS COVID-19 NAA NEGATIVE (NEGATIVE)
== END 2021-05-26 13:03 | disposition home or self-care (01) ==
LOC: JP.ED 10:21
DX: B34.9 Viral infection, unspecified (principal); M06.9 Rheumatoid arthritis, unspecified; I10 Essential (primary) hypertension; E03.9 Hypothyroidism, unspecified; Z88.1 Allergy status to other antibiotic agents; Z88.0 Allergy status to penicillin; Z88.2 Allergy status to sulfonamides; Z79.899 Other long term (current) drug therapy; Z20.822 Contact with and (suspected) exposure to COVID-19
CPT/HCPCS: 0241U; 36415; 81001; 85025; 99283

== ENCOUNTER 2022-02-02 17:57 | Emergency (ER) | payer OTHER, MEDICARE ==
[2022-02-02 19:10] VITALS: BP 168/88; PULSE 71
== END 2022-02-02 20:19 | disposition home or self-care (01) ==
LOC: JP.ED 17:57
DX: L23.7 Allergic contact dermatitis due to plants, except food (principal); I10 Essential (primary) hypertension; Z88.1 Allergy status to other antibiotic agents; Z88.0 Allergy status to penicillin; Z88.2 Allergy status to sulfonamides; Z79.899 Other long term (current) drug therapy
CPT/HCPCS: 99282

== ENCOUNTER 2022-08-04 15:54 | Emergency (ER) | payer OTHER, MEDICARE ==
[2022-08-04 16:13] VITALS: PULSE 77
[2022-08-04] MEDS ORDERED: Sodium Chloride 0.9% 10 ML Syringe FLUSH PRN (16:43)
[2022-08-04] MEDS ORDERED: Ondansetron 4 MG/2 ML SDV IVPUSH ONE (16:44)
[2022-08-04] MEDS ORDERED: Lactated Ringers 1,000 ML IV SCH (16:45)
[2022-08-04 17:07] VITALS: BP 134/83
[2022-08-04 17:25] LABS: ESTIMATED GFR 52 mL/min (>60); TROPONIN I HIGH SENSITIVITY 4.1 pg/mL (<=60.3)
== END 2022-08-04 18:21 | disposition home or self-care (01) ==
LOC: JP.ED 15:54
DX: K52.9 Noninfective gastroenteritis and colitis, unspecified (principal); I10 Essential (primary) hypertension; Z88.1 Allergy status to other antibiotic agents; Z88.0 Allergy status to penicillin; Z88.2 Allergy status to sulfonamides; Z88.8 Allergy status to other drugs, medicaments and biological substances; Z79.899 Other long term (current) drug therapy
CPT/HCPCS: 36415; 80053; 81001; 83605; 83690; 84484; 85025; 96361; 96374; 99284; J2405; J7120

== ENCOUNTER 2022-08-17 13:53 | Inpatient (IN) | payer OTHER, MEDICARE ==
[2022-08-17] MEDS ORDERED: Sodium Chloride 0.9% 10 ML Syringe FLUSH PRN ×2 (14:25→17:00)
[2022-08-17] MEDS ORDERED: Sodium Chloride 0.9% 500 ML IV ONE ×2 (14:36→15:20)
[2022-08-17] MEDS ORDERED: Scopolamine 1.5 MG Transdermal Patch TRDERM ONE (14:54)
[2022-08-17] MEDS ORDERED: Levofloxacin/Dextrose 5%-Water 750 MG in Premix Bag 1 BAG IV ONE (15:20)
[2022-08-17 15:22] LABS: ESTIMATED GFR 25 mL/min (>60)
[2022-08-17] MEDS ORDERED: SUMAtriptan 50 MG Tab PO ONE (15:37)
[2022-08-17] MEDS ORDERED: Hydrocortisone Sodium Succinate 100 MG/2 ML SDV IVPUSH ONE (15:38)
[2022-08-17 15:47] LABS: CORONAVIRUS COVID-19 NAA NEGATIVE (NEGATIVE)
[2022-08-17] MEDS ORDERED: Meropenem 500 MG in Sodium Chloride 0.9% 100 ML IV SCH (17:00)
[2022-08-17] MEDS ORDERED: Vancomycin 1 GM SDV IV SCH (17:00)
[2022-08-17] MEDS ORDERED: Sodium Chloride 0.9% 1,000 ML IV SCH (17:00)
[2022-08-17] MEDS: Meropenem 500 MG in Sodium Chloride 0.9% 100 ML IV SCH (17:42)
[2022-08-17] MEDS: Ondansetron 4 MG Tab.DIS PO PRN (19:38)
[2022-08-17] MEDS: ALPRAZolam 0.5 MG Tab PO PRN (19:49)
[2022-08-17] MEDS: Acetaminophen/HYDROcodone 325-10 MG Tab PO PRN (19:49)
[2022-08-17] MEDS ORDERED: Apixaban 5 MG Tab PO SCH (21:00)
[2022-08-17] MEDS: Metoprolol Succinate 25 MG Tab.ER PO SCH (21:20)
[2022-08-17] MEDS: Apixaban 5 MG Tab PO SCH (21:20)
[2022-08-18] MEDS: Loperamide 2 MG Cap PO PRN ×5 (03:04→21:29)
[2022-08-18] MEDS: Meropenem 500 MG in Sodium Chloride 0.9% 100 ML IV SCH (06:20)
[2022-08-18] MEDS: ALPRAZolam 0.5 MG Tab PO PRN ×3 (06:21→21:28)
[2022-08-18] MEDS: Acetaminophen/HYDROcodone 325-10 MG Tab PO PRN ×3 (06:21→21:28)
[2022-08-18] MEDS: SUMAtriptan 50 MG Tab PO PRN (06:42)
[2022-08-18] MEDS: Metoprolol Succinate 25 MG Tab.ER PO SCH ×2 (08:18→21:24)
[2022-08-18] MEDS: Levothyroxine 50 MCG Tab PO SCH (08:19)
[2022-08-18] MEDS: Lactobacillus Rhamnosus GG (Probiotic) Cap PO SCH (08:19)
[2022-08-18] MEDS: Apixaban 5 MG Tab PO SCH ×2 (08:19→21:23)
[2022-08-18] MEDS: Desvenlafaxine Succinate 25 MG TAB.ER PO SCH (08:19)
[2022-08-18] MEDS: Hydrocortisone Sodium Succinate 100 MG/2 ML SDV IVPUSH SCH ×2 (08:29→21:23)
[2022-08-18] MEDS ORDERED: predniSONE 1 MG Tab PO SCH (09:00)
[2022-08-18] MEDS ORDERED: Levothyroxine 50 MCG Tab PO SCH (09:00)
[2022-08-18] MEDS: Magnesium Sulfate/Water 2 GM in Premix Bag 1 BAG IV SCH ×2 (09:50→14:40)
[2022-08-18] MEDS: Magnesium Oxide 400 MG Tab PO SCH ×2 (09:50→21:23)
[2022-08-18] MEDS: VERIFY SCOP PATCH TOP SCH (09:52)
[2022-08-18] MEDS: Meropenem 1 GM in Sodium Chloride 0.9% 100 ML IV SCH ×2 (13:51→21:32)
[2022-08-18] MEDS ORDERED: Levofloxacin/Dextrose 5%-Water 750 MG in Premix Bag 1 BAG IV SCH (15:00)
[2022-08-18] MEDS: Levofloxacin/Dextrose 5%-Water 750 MG in Premix Bag 1 BAG IV SCH (16:57)
[2022-08-19] MEDS: Loperamide 2 MG Cap PO PRN ×3 (01:44→11:33)
[2022-08-19] MEDS: Meropenem 1 GM in Sodium Chloride 0.9% 100 ML IV SCH ×3 (05:59→22:11)
[2022-08-19] MEDS: Levothyroxine 50 MCG Tab PO SCH (07:29)
[2022-08-19] MEDS: ALPRAZolam 0.5 MG Tab PO PRN ×3 (07:34→21:15)
[2022-08-19] MEDS: Acetaminophen/HYDROcodone 325-10 MG Tab PO PRN ×3 (07:34→21:12)
[2022-08-19] MEDS: Magnesium Oxide 400 MG Tab PO SCH ×2 (09:50→20:41)
[2022-08-19] MEDS: Desvenlafaxine Succinate 25 MG TAB.ER PO SCH (09:51)
[2022-08-19] MEDS: Lactobacillus Rhamnosus GG (Probiotic) Cap PO SCH (09:51)
[2022-08-19] MEDS: Metoprolol Succinate 25 MG Tab.ER PO SCH ×2 (09:51→20:41)
[2022-08-19] MEDS: VERIFY SCOP PATCH TOP SCH (09:54)
[2022-08-19] MEDS: Apixaban 5 MG Tab PO SCH ×2 (09:54→20:40)
[2022-08-19] MEDS: Hydrocortisone Sodium Succinate 100 MG/2 ML SDV IVPUSH SCH ×2 (09:54→20:40)
[2022-08-19] MEDS ORDERED: Levofloxacin/Dextrose 5%-Water 500 MG in Premix Bag 1 BAG IV SCH (15:00)
[2022-08-19] MEDS: Levofloxacin/Dextrose 5%-Water 750 MG in Premix Bag 1 BAG IV SCH (16:21)
[2022-08-19] MEDS: Acetaminophen 325 MG Tab PO PRN ×2 (18:04→22:23)
[2022-08-19] MEDS: Ondansetron 4 MG Tab.DIS PO PRN (19:56)
[2022-08-20] MEDS: Meropenem 1 GM in Sodium Chloride 0.9% 100 ML IV SCH ×2 (05:37→13:37)
[2022-08-20] MEDS: Acetaminophen/HYDROcodone 325-10 MG Tab PO PRN ×2 (06:11→14:54)
[2022-08-20] MEDS: ALPRAZolam 0.5 MG Tab PO PRN ×3 (06:18→23:58)
[2022-08-20] MEDS: Levothyroxine 50 MCG Tab PO SCH (07:55)
[2022-08-20] MEDS: Magnesium Oxide 400 MG Tab PO SCH ×2 (08:37→20:20)
[2022-08-20] MEDS: Lactobacillus Rhamnosus GG (Probiotic) Cap PO SCH (08:37)
[2022-08-20] MEDS: Metoprolol Succinate 25 MG Tab.ER PO SCH ×2 (08:37→20:20)
[2022-08-20] MEDS: Apixaban 5 MG Tab PO SCH ×2 (08:38→20:19)
[2022-08-20] MEDS: VERIFY SCOP PATCH TOP SCH (08:38)
[2022-08-20] MEDS: Desvenlafaxine Succinate 25 MG TAB.ER PO SCH (08:39)
[2022-08-20] MEDS: SUMAtriptan 50 MG Tab PO PRN (11:21)
[2022-08-20] MEDS: Acetaminophen 325 MG Tab PO PRN ×3 (11:22→23:56)
[2022-08-20] MEDS ORDERED: predniSONE 5 MG Tab PO ONE (12:00)
[2022-08-20] MEDS: levoFLOXacin 500 MG, levoFLOXacin 250 MG PO SCH ×2 (16:50)
[2022-08-20] MEDS ORDERED: Levofloxacin 250 MG Tab PO SCH (17:00)
[2022-08-20] MEDS ORDERED: SUMAtriptan 50 MG Tab PO ONE (17:36)
[2022-08-20] MEDS ORDERED: Ketorolac 15 MG/ML SDV IVPUSH ONE (19:38)
[2022-08-20] MEDS: Linezolid 600 MG Tab PO SCH (20:18)
[2022-08-20] MEDS: Cefdinir 300 MG Cap PO SCH (20:20)
[2022-08-21] MEDS ORDERED: Ketorolac 15 MG/ML SDV IVPUSH ONE (02:39)
[2022-08-21] MEDS: Acetaminophen 325 MG Tab PO PRN ×3 (04:17→17:09)
[2022-08-21] MEDS ORDERED: Potassium Chloride 20 MEQ Tab.ER PO ONE (05:40)
[2022-08-21] MEDS ORDERED: Potassium Chloride 10 MEQ in Premix Bag 4 BAG IV ONE (05:40)
[2022-08-21] MEDS: Potassium Chloride 10 MEQ in Premix Bag 1 BAG IV SCH ×4 (05:48→10:41)
[2022-08-21] MEDS: Levothyroxine 50 MCG Tab PO SCH (07:49)
[2022-08-21] MEDS ORDERED: Apixaban 5 MG Tab PO SCH (09:00)
[2022-08-21] MEDS: Acetaminophen/HYDROcodone 325-10 MG Tab PO PRN (09:11)
[2022-08-21] MEDS: ALPRAZolam 0.5 MG Tab PO PRN ×3 (09:11→21:17)
[2022-08-21] MEDS: Ondansetron 4 MG Tab.DIS PO PRN (09:22)
[2022-08-21] MEDS: Desvenlafaxine Succinate 25 MG TAB.ER PO SCH (10:42)
[2022-08-21] MEDS: Apixaban 5 MG Tab PO SCH ×2 (10:43→20:04)
[2022-08-21] MEDS: Lactobacillus Rhamnosus GG (Probiotic) Cap PO SCH (10:43)
[2022-08-21] MEDS: predniSONE 5 MG Tab PO SCH (10:43)
[2022-08-21] MEDS: Linezolid 600 MG Tab PO SCH ×2 (10:43→20:04)
[2022-08-21] MEDS: Metoprolol Succinate 25 MG Tab.ER PO SCH ×2 (10:44→20:03)
[2022-08-21] MEDS: VERIFY SCOP PATCH TOP SCH (10:44)
[2022-08-21] MEDS: Magnesium Oxide 400 MG Tab PO SCH ×2 (10:44→20:04)
[2022-08-21] MEDS: Cefdinir 300 MG Cap PO SCH (10:49)
[2022-08-21] MEDS ORDERED: Ketorolac 30 MG/ML SDV IVPUSH ONE (15:15)
[2022-08-21] MEDS ORDERED: Sodium Chloride 0.9% 1,000 ML IV SCH (16:15)
[2022-08-21] MEDS: levoFLOXacin 500 MG, levoFLOXacin 250 MG PO SCH ×2 (17:10)
[2022-08-22] MEDS: Acetaminophen/HYDROcodone 325-10 MG Tab PO PRN (00:31)
[2022-08-22] MEDS: ALPRAZolam 0.5 MG Tab PO PRN ×2 (04:37→19:24)
[2022-08-22 05:08] LABS: ESTIMATED GFR 58 mL/min (>60)
[2022-08-22] MEDS: Acetaminophen 325 MG Tab PO PRN ×3 (05:54→19:24)
[2022-08-22] MEDS: Ondansetron 4 MG Tab.DIS PO PRN ×2 (07:58→17:19)
[2022-08-22] MEDS: predniSONE 5 MG Tab PO SCH (08:01)
[2022-08-22] MEDS: Levothyroxine 50 MCG Tab PO SCH (08:01)
[2022-08-22] MEDS: Linezolid 600 MG Tab PO SCH ×2 (08:02→20:55)
[2022-08-22] MEDS: Lactobacillus Rhamnosus GG (Probiotic) Cap PO SCH (08:02)
[2022-08-22] MEDS: Apixaban 5 MG Tab PO SCH ×2 (08:03→20:55)
[2022-08-22] MEDS: VERIFY SCOP PATCH TOP SCH (08:03)
[2022-08-22] MEDS: Metoprolol Succinate 25 MG Tab.ER PO SCH ×2 (08:03→20:56)
[2022-08-22] MEDS: Magnesium Oxide 400 MG Tab PO SCH ×2 (08:03→20:55)
[2022-08-22] MEDS: Ketorolac 15 MG/ML SDV IVPUSH PRN (09:16)
[2022-08-22] MEDS: levoFLOXacin 500 MG, levoFLOXacin 250 MG PO SCH ×2 (17:16)
[2022-08-22] MEDS: Loperamide 2 MG Cap PO PRN (22:51)
[2022-08-23] MEDS: Acetaminophen 325 MG Tab PO PRN ×3 (00:08→16:34)
[2022-08-23] MEDS ORDERED: Sodium Chloride 0.9% 100 ML IV STA (00:21)
[2022-08-23] MEDS ORDERED: Iopamidol 612 MG/ML 100 ML Bottle IV STA (00:21)
[2022-08-23] MEDS: Ondansetron 4 MG Tab.DIS PO PRN ×2 (01:13→18:34)
[2022-08-23] MEDS: ALPRAZolam 0.5 MG Tab PO PRN ×3 (01:31→22:30)
[2022-08-23] MEDS: Ketorolac 15 MG/ML SDV IVPUSH PRN (03:17)
[2022-08-23] MEDS: Acetaminophen/HYDROcodone 325-10 MG Tab PO PRN ×2 (05:57→16:35)
[2022-08-23] MEDS: Linezolid 600 MG Tab PO SCH ×2 (08:01→22:30)
[2022-08-23] MEDS: predniSONE 5 MG Tab PO SCH (08:01)
[2022-08-23] MEDS: Levothyroxine 50 MCG Tab PO SCH (08:02)
[2022-08-23] MEDS: Apixaban 5 MG Tab PO SCH ×2 (08:02→22:30)
[2022-08-23] MEDS: Lactobacillus Rhamnosus GG (Probiotic) Cap PO SCH (08:02)
[2022-08-23] MEDS: Magnesium Oxide 400 MG Tab PO SCH ×2 (08:03→22:30)
[2022-08-23] MEDS: VERIFY SCOP PATCH TOP SCH (08:04)
[2022-08-23] MEDS: Metoprolol Succinate 25 MG Tab.ER PO SCH (10:26)
[2022-08-23] MEDS ORDERED: Ondansetron 4 MG/2 ML SDV IVPUSH PRN (10:56)
[2022-08-23] MEDS ORDERED: Sodium Chloride 0.9% 500 ML IV SCH (11:00)
[2022-08-23] MEDS ORDERED: Ondansetron 4 MG/2 ML SDV ONE (11:00)
[2022-08-23] MEDS ORDERED: predniSONE 20 MG Tab PO ONE (11:00)
[2022-08-23] MEDS: Loperamide 2 MG Cap PO PRN ×2 (13:32→22:40)
[2022-08-23] MEDS: levoFLOXacin 500 MG, levoFLOXacin 250 MG PO SCH ×2 (16:34)
[2022-08-24] MEDS ORDERED: Calcium Carbonate 500 MG Tab.Chew PO ONE (00:27)
[2022-08-24] MEDS: Acetaminophen 325 MG Tab PO PRN (03:13)
[2022-08-24] MEDS ORDERED: Sodium Chloride 0.9% 500 ML IV ONE (03:15)
[2022-08-24] MEDS: Ketorolac 15 MG/ML SDV IVPUSH PRN (03:19)
[2022-08-24] MEDS: ALPRAZolam 0.5 MG Tab PO PRN ×3 (03:20→21:09)
[2022-08-24 04:47] LABS: CORONAVIRUS COVID-19 NAA NEGATIVE (NEGATIVE)
[2022-08-24] MEDS: Levothyroxine 50 MCG Tab PO SCH (07:51)
[2022-08-24] MEDS: Linezolid 600 MG Tab PO SCH (09:35)
[2022-08-24] MEDS: predniSONE 20 MG Tab PO SCH (09:35)
[2022-08-24] MEDS: Magnesium Oxide 400 MG Tab PO SCH ×2 (09:36→21:08)
[2022-08-24] MEDS: Apixaban 5 MG Tab PO SCH ×2 (09:36→21:07)
[2022-08-24] MEDS: Lactobacillus Rhamnosus GG (Probiotic) Cap PO SCH (09:36)
[2022-08-24] MEDS: VERIFY SCOP PATCH TOP SCH (09:49)
[2022-08-24] MEDS: Loperamide 2 MG Cap PO PRN (09:49)
[2022-08-24] MEDS: predniSONE 5 MG Tab PO SCH (09:51)
[2022-08-24] MEDS: Ibuprofen 600 MG Tab PO SCH ×2 (14:56→21:08)
[2022-08-24] MEDS: Acetaminophen/HYDROcodone 325-10 MG Tab PO PRN (19:28)
[2022-08-24] MEDS ORDERED: Melatonin 3 MG Tab PO PRN (20:19)
[2022-08-25] MEDS: Acetaminophen/HYDROcodone 325-10 MG Tab PO PRN (07:24)
[2022-08-25] MEDS: Levothyroxine 50 MCG Tab PO SCH (07:25)
[2022-08-25 07:30] VITALS: BP 142/85; PULSE 78
[2022-08-25] MEDS: predniSONE 20 MG Tab PO SCH (09:29)
[2022-08-25] MEDS: Apixaban 5 MG Tab PO SCH (09:29)
[2022-08-25] MEDS: Lactobacillus Rhamnosus GG (Probiotic) Cap PO SCH (09:29)
[2022-08-25] MEDS: Magnesium Oxide 400 MG Tab PO SCH (09:30)
[2022-08-25] MEDS: Ibuprofen 600 MG Tab PO SCH (09:30)
[2022-08-25] MEDS: VERIFY SCOP PATCH TOP SCH (09:31)
== END 2022-08-25 12:40 | disposition home or self-care (01) | DRG 871 ==
LOC: JP.ED 13:53 → JP.MS 16:28
PROVIDERS: ADMIT Hospitalist; ATTEND Internal Medicine
DX: A41.9 Sepsis, unspecified organism (principal); J18.9 Pneumonia, unspecified organism; E27.40 Unspecified adrenocortical insufficiency; N17.9 Acute kidney failure, unspecified; I10 Essential (primary) hypertension; F41.9 Anxiety disorder, unspecified; F32.A Depression, unspecified; M35.9 Systemic involvement of connective tissue, unspecified; E87.5 Hyperkalemia; M06.9 Rheumatoid arthritis, unspecified; Z20.822 Contact with and (suspected) exposure to COVID-19; E86.0 Dehydration; Z96.659 Presence of unspecified artificial knee joint; E03.9 Hypothyroidism, unspecified; Z96.649 Presence of unspecified artificial hip joint; Z88.0 Allergy status to penicillin; Z88.8 Allergy status to other drugs, medicaments and biological substances; Z88.2 Allergy status to sulfonamides; Z79.899 Other long term (current) drug therapy; Z86.16 Personal history of COVID-19; Z85.828 Personal history of other malignant neoplasm of skin; Z79.52 Long term (current) use of systemic steroids
CPT/HCPCS: 0241U; 36415; 71045; 71045-26; 71260; 74177; 80048; 80053; 81001; 83605; 83735; 84132; 84145; 85025; 85027; 86140; 87040; 87493; 93005; 93010; 97110-GP; 97161-GP; 99222; 99232; 99238; 99285; A9270-GY; J1720; J1885; J1956; J2185; J2405; J3370; J3475; J3480; J3490; J7030; J7040; J7050; J7512; Q0162; Q9967